=== PATIENT | female | born 1970 | race Caucasian/White ===

== ENCOUNTER → 2018-08-01 | Outpatient (CLI) | payer BC | END | disposition home or self-care (01) | LOC: CFH 15:21 | PROVIDERS: ATTEND Registered Nurse Registered Nurse First Assistant | DX: M47.896 Other spondylosis, lumbar region (principal); M48.07 Spinal stenosis, lumbosacral region; M25.48 Effusion, other site; M54.16 Radiculopathy, lumbar region | CPT/HCPCS: 72110; 72148 ==